=== PATIENT | female | born 1990 | race American Indian/Alaskan Native ===

== ENCOUNTER 2016-07-19 03:14 | Emergency (ER) | payer BC, MEDICAID ==
[2016-07-19 03:53] VITALS: BP 111/70
[2016-07-19 04:15] LABS: Basophils % (Auto) 0.5 % (0.0-1.8); Eosinophils % (Auto) 0.5 % (0.0-4.3); Hemoglobin 12.2 gm/dl (10.1-14.3); Mean Corpuscular HGB Conc 32 % (30-34); Mean Corpuscular Hemoglobin 26 pg (28-32); Mean Corpuscular Volume 82 fl (79-97); Platelet Count 212 K/mm3 (140-440); Red Blood Count 4.62 M/mm3 (3.65-5.03); White Blood Count 7.3 K/mm3 (4.5-11.0)
[2016-07-19 04:34] LABS: Alanine Aminotransferase 6 units/L (7-56); Albumin/Globulin Ratio 1.2 %; Alkaline Phosphatase 53 units/L (35-129); Anion Gap 18 mmol/L; BUN/Creatinine Ratio 16.66; Bilirubin,Total 0.2 mg/dL (0.1-1.2); Blood Urea Nitrogen 10 mg/dL (7-17); Calcium 8.6 mg/dL (8.4-10.2); Carbon Dioxide 22 mmol/L (22-30); Chloride 102.4 mmol/L (98-107); Glucose 98 mg/dL (65-100); Lipase 24 units/L (13-60); Potassium 3.6 mmol/L (3.6-5.0); Sodium 139 mmol/L (137-145); Total Protein 7.3 g/dL (6.3-8.2)
[2016-07-19 04:42] LABS: Bilirubin,Urine NEG (Negative); Blood,Urine NEG (Negative); Ketones,Urine 20 mg/dL (Negative); Leukocyte Esterase,Urine NEG (Negative); Mucus,Urine 3+ /HPF; Nitrite,Urine NEG (Negative); Protein,Urine <15 mg/dL mg/dL (Negative)
--- NOTE | 2016-07-21 15:57 | ED Elopement Review ---
ED Pt Elopement review - Results review Lab results: Laboratory Tests 07/19/16 07/19/16 07/19/16 04:00 04:00 04:19 WBC 7.3 RBC 4.62 Hgb 12.2 Hct 38.0 MCV 82 MCH 26 L MCHC 32 RDW 14.0 Plt Count 212 Lymph % (Auto) 19.8 [place] % (Auto) 5.7 Eos % (Auto) 0.5 Baso % (Auto) 0.5 Lymph # 1.4 [place] # 0.4 Eos # 0.0 Baso # 0.0 Seg Neutrophils % 73.5 H Seg Neutrophils # 5.3 Sodium 139 Potassium 3.6 Chloride 102.4 Carbon Dioxide 22 Anion Gap 18 BUN 10 Creatinine 0.6 L Estimated GFR > 60 BUN/Creatinine Ratio 16.66 Glucose 98 Calcium 8.6 Total Bilirubin 0.2 AST 13 ALT 6 L Alkaline Phosphatase 53 Total Protein 7.3 Albumin 4.0 Albumin/Globulin Ratio 1.2 Lipase 24 Urine Color Yellow Urine Turbidity Clear Urine pH 6.0 Ur Specific [place] 1.031 H Urine Protein <15 mg/dl Urine Glucose (UA) Neg Urine Ketones 20 Urine Blood Neg Urine Nitrite Neg Urine Bilirubin Neg Urine Urobilinogen 2.0 Ur Leukocyte Esterase Neg Urine WBC (Auto) 1.0 Urine RBC (Auto) 2.0 U Epithel Cells (Auto) 4.0 Urine Mucus 3+ Urine HCG, Qual Negative - Call Back decision Pt Call Back Decision: No action required
== END 2016-07-19 13:00 | disposition left against medical advice (07) ==
LOC: ED 03:14
DX: R10.9 Unspecified abdominal pain (principal); R11.10 Vomiting, unspecified; Z53.21 Procedure and treatment not carried out due to patient leaving prior to being seen by health care provider
CPT/HCPCS: 36415; 80053; 81001; 81025; 83690; 85025

== ENCOUNTER 2016-08-23 17:15 | Emergency (ER) | payer BC ==
[2016-08-23 18:48] LABS: Basophils % (Auto) 0.8 % (0.0-1.8); Eosinophils % (Auto) 0.6 % (0.0-4.3); Hematocrit 37.6 % (30.3-42.9); Hemoglobin 12.1 gm/dl (10.1-14.3); Mean Corpuscular HGB Conc 32 % (30-34); Mean Corpuscular Hemoglobin 26 pg (28-32); Mean Corpuscular Volume 81 fl (79-97); Platelet Count 201 K/mm3 (140-440); Red Blood Count 4.64 M/mm3 (3.65-5.03); Red Cell Distribution Width 14.2 % (13.2-15.2); White Blood Count 10.1 K/mm3 (4.5-11.0)
[2016-08-23 18:48] LABS: Bacteria,Urine 1+ /HPF (Negative); Bilirubin,Urine NEG (Negative); Blood,Urine LG (Negative); Ketones,Urine 80 mg/dL (Negative); Leukocyte Esterase,Urine MOD (Negative); Mucus,Urine 3+ /HPF; Nitrite,Urine NEG (Negative)
[2016-08-23 18:49] LABS: RBC,Urine > 182.0 /HPF (0.0-6.0); WBC,Urine > 182.0 /HPF (0.0-6.0)
[2016-08-23 19:05] LABS: Alanine Aminotransferase 6 units/L (7-56); Albumin 4.1 g/dL (3.9-5); Albumin/Globulin Ratio 1.3 %; Alkaline Phosphatase 52 units/L (35-129); Anion Gap 15 mmol/L; BUN/Creatinine Ratio 11.66; Bilirubin,Total 0.6 mg/dL (0.1-1.2); Blood Urea Nitrogen 7 mg/dL (7-17); Calcium 8.8 mg/dL (8.4-10.2); Carbon Dioxide 25 mmol/L (22-30); Chloride 101.7 mmol/L (98-107); Glucose 82 mg/dL (65-100); Lipase 11 units/L (13-60); Potassium 3.6 mmol/L (3.6-5.0); Sodium 138 mmol/L (137-145); Total Protein 7.2 g/dL (6.3-8.2)
[2016-08-24] MEDS ORDERED: NACL 0.9% 1000 ML 1,000 ML IV ONE (01:11)
[2016-08-24] MEDS ORDERED: ROCEPHIN/NS 1 GM/50 ML 1 GM/50 ML BAG IV ONE (01:11)
[2016-08-24] MEDS ORDERED: MORPHINE IV ONE (01:11)
--- NOTE | 2016-08-24 01:26 | Emergency Department Report ---
HPI - General Chief Complaint: Abdominal Pain Time Seen by Provider: 08/24/16 01:09 - HPI HPI: This is a 26-year-old -[place] female presents to the emergency department with complaint of lower abdominal/pelvic discomfort as well as some low back pain that has been going on since earlier this morning. It is associated with some nausea and one episode of vomiting but the patient currently does not feel nauseated. She is not taken anything for symptoms prior to presentation. She does not have a primary care doctor. Her OB is a doctor Kat. No recent travel or sick contacts at home. She denies any significant past medical history but says that she does get up a lot of "kidney infections." She denies any chest pain, fever, numbness or paresthesias, problems with bowel or bladder, dysuria or vaginal bleeding or discharge. ED Past Medical Hx - Past Medical History Previous Medical History?: Yes Hx Congestive Heart Failure: No Hx Diabetes: No Hx Asthma: No Hx COPD: No Additional medical history: "heart irregular", Kidney infections - Surgical History Past Surgical History?: No - Social History Smoking Status: Never Smoker Substance Use Type: None - Medications Home Medications: Home Medications Medication Instructions Recorded Confirmed Last Taken Type Ciprofloxacin [Ciprofloxacin ORAL 250 mg PO Q12H #6 ml 10/01/15 Unknown Rx LIQ] Pantoprazole [Protonix] 40 mg PO QDAY #14 tablet 10/01/15 Unknown Rx Ciprofloxacin HCl [Ciprofloxacin 500 mg PO Q12H #14 tab 08/24/16 Unknown Rx TAB] Phenazopyridine [Pyridium] 100 mg PO TID #6 tab 08/24/16 Unknown Rx ED Review of Systems ROS: Stated complaint: ABD PAIN,BACK PAIN Other details as noted in HPI Comment: All other systems reviewed and negative Constitutional: denies: chills, fever Eyes: denies: eye pain, eye discharge, vision change ENT: denies: ear pain, throat pain Respiratory: denies: cough, shortness of breath, wheezing Cardiovascular: denies: chest pain, palpitations Gastrointestinal: abdominal pain, nausea, vomiting Genitourinary: denies: hematuria, discharge Musculoskeletal: back pain. denies: arthralgia Skin: denies: rash, lesions Neurological: denies: headache, weakness, paresthesias Physical Exam - Physical Exam Vital Signs: Vital Signs 08/23/16 08/24/16 18:01 01:04 Temperature 98.5 F Pulse Rate 76 59 L Respiratory 18 18 Rate Blood Pressure 101/67 Blood Pressure 114/68 [Left] O2 Sat by Pulse 100 100 Oximetry Physical Exam: GENERAL: The patient is well-developed well-nourished. HEENT: Normocephalic. Atraumatic. Extraocular motions are intact. Patient has moist mucous membranes. Pupils equal reactive to light bilaterally. NECK: Supple. Trachea is midline. CHEST/LUNGS: Clear to auscultation. There is no respiratory distress noted. HEART/CARDIOVASCULAR: Regular. There is no tachycardia. There is no gallop rub or murmur. ABDOMEN: Abdomen is soft. There is some tenderness to palpation to the lower quadrants of the abdomen and suprapubic region. No guarding or rebound tenderness. Patient has normal bowel sounds. There is no abdominal distention. SKIN: Skin is warm and dry. NEURO: The patient is awake, alert, and oriented. The patient is cooperative. The patient has no focal neurologic deficits. The patient has normal speech. MUSCULOSKELETAL: There is no tenderness or deformity. There is no limitation range of motion. There is no evidence of acute injury. BACK: No midline thoracic or lumbar tenderness to palpation or deformity. No CVA tenderness to palpation. ED Course Vital Signs 08/23/16 08/24/16 18:01 01:04 Temperature 98.5 F Pulse Rate 76 59 L Respiratory 18 18 Rate Blood Pressure 101/67 Blood Pressure 114/68 [Left] O2 Sat by Pulse 100 100 Oximetry ED Medical Decision Making - Lab Data Result diagrams: 08/23/16 18:34 08/23/16 18:34 - Radiology Data Radiology results: report reviewed Transvaginal/pelvic Doppler ultrasound shows no ovarian torsion, normal- appearing uterus and a normal ultrasound examination. - Medical Decision Making 26-year-old female presents with lower abdominal and/or pelvic discomfort since this morning. Patient's that she had one episode of nausea with vomiting but that has since resolved. The abdominal pain is slightly reproducible but is not a toxic abdomen. There is no CVA tenderness to palpation of the back. Patient's labs are mostly unremarkable other than a significant urinary tract infection with some hematuria. Since the patient does not have any CVA tenderness, significant leukocytosis or fever, it is low suspicion the patient has pyelonephritis. However she will be covered with stronger antibiotics that do penetrate to the kidneys if necessary. Ultrasound was done that did not show any ovarian torsion or fibroids or any uterine abnormalities. Patient was given first dose of IV antibiotics here. She was given 7 for pain and some IV fluid. Upon reevaluation she is feeling improved. Vital signs stable throughout her ED course including being afebrile. There is no leukocytosis, electrolyte abnormalities or abnormal belly labs. Patient is not . Patient be discharged home with antibiotics and a 2 day course of Pyridium. She will return to the ER with any worsening of her symptoms or any acute distress. - Differential Diagnosis , UTI, fibroids, muscle spasm, colitis Critical Care Time: No Critical care attestation.: If time is entered above; I have spent that time in minutes in the direct care of this critically ill patient, excluding procedure time. ED Disposition Clinical Impression: Abdominal pain Qualifiers: Abdominal location: lower abdomen, unspecified Qualified Code(s): R10.30 - Lower abdominal pain, unspecified UTI (urinary tract infection) Qualifiers: Urinary tract infection type: acute cystitis Hematuria presence: with hematuria Qualified Code(s): N30.01 - Acute cystitis with hematuria Low back pain Qualifiers: Chronicity: unspecified Back pain laterality: bilateral Sciatica presence: without sciatica Qualified Code(s): M54.5 - Low back pain Disposition: DISCHARGED TO HOME OR SELFCARE Is pt being admited?: No Condition: Stable Instructions: Urinary Tract Infection in Women (ED), Abdominal Pain (ED) Additional Instructions: Please follow-up with a primary care doctor in the next few days. Return to the emergency department with any worsening of your symptoms or any acute distress. Prescriptions: Ciprofloxacin HCl [Ciprofloxacin TAB] 500 mg PO Q12H #14 tab Phenazopyridine [Pyridium] 100 mg PO TID #6 tab Referrals: PRIMARY CARE, [Primary Care Provider] - 3-5 Days ANTONINO RADER MD [Staff Physician] - 3-5 Days [facility] [Outside] - 3-5 Days Time of Disposition: 02:51
--- NOTE | 2016-08-24 02:41 | Ultrasound Report ---
FINAL REPORT PROCEDURE: US TRANSVAGINAL TECHNIQUE: Real-time transvaginal sonography in multiple planes of the pelvis was performed with image documentation. This examination was performed without Doppler. Vascular abnormalities, including ovarian torsion, will not be detectable without Doppler evaluation. CPT 77755 HISTORY: pelvic pain COMPARISON: No prior studies are available for comparison. FINDINGS: UTERUS Size: 9.2 x 4.4 x 6 cm. Endometrial thickness: 9 mm. Orientation: anteverted. Cervix: Normal. Fibroids/masses: None. RIGHT Ovary: 3.3 x 1.6 x 1.5 cm. Appearance: Normal. LEFT Ovary: 2.5 x 1.6 x 1.6 cm. Appearance: There is a 12 millimeter cyst.. Pelvic fluid: There is minimal free pelvic fluid.. Other: None. IMPRESSION: Normal uterus. There is no evidence of ovarian torsion or mass. There is minimal nonspecific free pelvic fluid..
--- NOTE | 2016-08-24 02:42 | Ultrasound Report ---
FINAL REPORT PROCEDURE: US PELVIS DUPLEX DOPPLER COMP TECHNIQUE: Real-time transabdominal sonography in multiple planes of the pelvis was performed with image documentation. Grayscale, color flow Doppler imaging and velocity spectral waveform analysis of the ovaries was employed (duplex imaging). CPT 52383 and 73533 HISTORY: pelvic pain COMPARISON: No prior studies are available for comparison. FINDINGS: UTERUS Size: 9.2 x 4.4 x 6 cm. Endometrial thickness: 9 mm. Orientation: anteverted. Cervix: Normal. Fibroids/masses: None. RIGHT Ovary: 3.3 x 1.6 x 1.5 cm. Appearance: Normal. Doppler images: Normal spectral waveforms and color flow. The systolic and diastolic velocities are within normal limits. LEFT Ovary: 2.5 x 1.6 x 1.6 cm. Appearance: There is a 12 millimeters cyst.. Doppler images: Normal spectral waveforms and color flow. The systolic and diastolic velocities are within normal limits. Pelvic fluid: There is minimal free fluid.. Other: None. IMPRESSION: There is no evidence of ovarian torsion.
[2016-08-24 03:19] VITALS: BP 116/70
== END 2016-08-24 03:14 | disposition home or self-care (01) ==
LOC: ED 17:15
DX: N30.01 Acute cystitis with hematuria (principal); M54.5 Low back pain; R10.30 Lower abdominal pain, unspecified
CPT/HCPCS: 36415; 76830; 80053; 81001; 81025; 83690; 85025; 93975; 96365; 96375; 99284; J0696; J2270; J7030

== ENCOUNTER 2017-07-03 19:17 | Emergency (ER) | payer SELFPAY ==
[2017-07-03 19:43] VITALS: BP 136/90
== END 2017-07-04 03:43 | disposition left against medical advice (07) ==
LOC: ED 19:17
DX: M79.644 Pain in right finger(s) (principal); Z53.21 Procedure and treatment not carried out due to patient leaving prior to being seen by health care provider